=== PATIENT | female | born 2000 | race Caucasian/White ===

== ENCOUNTER 2024-02-09 18:22 | Emergency (ER) | payer MEDICAID ==
[~2024-02-09] VITALS: Ht 170.2 cm; Wt 127.0 kg
[2024-02-09 18:25] VITALS: TEMP 98.5; O2SAT 95
[2024-02-09] MEDS: DIPHENHYDRAMINE 50MG/ML VIAL IM ONE (19:38)
[2024-02-09] MEDS: KETOROLAC 30MG/ML VIAL IM ONE (19:39)
[2024-02-09] MEDS: PROCHLORPERAZINE 10MG/2ML VIAL IM ONE (19:42)
[2024-02-09] MEDS ORDERED: PROC-27 MT (19:55)
[2024-02-09] MEDS ORDERED: IBUP-2030 MT (19:55)
[2024-02-09 20:29] VITALS: BP 154/85; PULSE 74; RESP 20
== END 2024-02-09 20:30 | disposition home or self-care (01) ==
LOC: ER 18:22
DX: R51.9 Headache, unspecified (principal)
CPT/HCPCS: 99284; 81025; 96372; J1200; J1885; J0780

== ENCOUNTER 2024-03-08 20:13 | Emergency (ER) | payer MEDICAID ==
[~2024-03-08] VITALS: Ht 157.5 cm; Wt 108.0 kg
[~2024-03-08 20:13] MED LIST: IBUP-2030 MT; PROC-27 MT
[2024-03-08 20:20] VITALS: O2SAT 98
[2024-03-08] MEDS ORDERED: SUMA25TA9 MT (21:09)
[2024-03-08] MEDS: PROCHLORPERAZINE 10MG/2ML VIAL IM ONE (21:15)
[2024-03-08] MEDS: DIPHENHYDRAMINE 50MG/ML VIAL IM ONE (21:30)
[2024-03-08] MEDS: KETOROLAC 30MG/ML VIAL IM ONE (21:44)
[2024-03-08 21:54] VITALS: BP 164/88; PULSE 109; RESP 18; TEMP 97.3
== END 2024-03-08 22:01 | disposition home or self-care (01) ==
LOC: ER 20:13
DX: I10 Essential (primary) hypertension (principal); G43.909 Migraine, unspecified, not intractable, without status migrainosus; F32.A Depression, unspecified; Z86.59 Personal history of other mental and behavioral disorders
CPT/HCPCS: 99284; 96372; J1200; J1885; J0780

== ENCOUNTER 2024-05-14 12:28 | Emergency (ER) | payer MEDICAID ==
[~2024-05-14] VITALS: Ht 157.5 cm; Wt 107.5 kg
[~2024-05-14 12:28] MED LIST changes: +SUMA25TA9 MT
[2024-05-14 12:40] VITALS: BP 161/96; PULSE 97; RESP 18; TEMP 97.7; O2SAT 97
== END 2024-05-14 15:52 | disposition left against medical advice (07) ==
LOC: ER 12:28
DX: R11.2 Nausea with vomiting, unspecified (principal); Z53.21 Procedure and treatment not carried out due to patient leaving prior to being seen by health care provider

== ENCOUNTER 2024-07-28 11:25 | Emergency (ER) | payer MEDICAID ==
[~2024-07-28] VITALS: Ht 157.5 cm; Wt 108.0 kg
[2024-07-28 11:31] VITALS: BP 163/69; PULSE 109; RESP 16; TEMP 97.5; O2SAT 90
[2024-07-28] MEDS: ONDANSETRON HCL 4MG TABLET PO ONE (13:27)
[2024-07-28] MEDS: LORAZEPAM 0.5MG TABLET PO ONE (13:27)
[2024-07-29] MEDS ORDERED: IOHEXOL-350 100 ML BOTTLE ONE (14:23)
== END 2024-07-28 15:30 | disposition home or self-care (01) ==
LOC: ER 11:25
DX: F41.0 Panic disorder [episodic paroxysmal anxiety] (principal); F32.A Depression, unspecified
CPT/HCPCS: 99283; Q9967; Q0162

== ENCOUNTER 2024-08-21 20:16 | Emergency (ER) | payer MEDICAID ==
[~2024-08-21] VITALS: Ht 157.5 cm; Wt 100.0 kg
[2024-08-21 20:24] VITALS: O2SAT 98
[2024-08-21 20:37] VITALS: BP 174/87; PULSE 102; RESP 20; TEMP 98.5; O2SAT 100
== END 2024-08-21 23:23 | disposition left against medical advice (07) ==
LOC: ER 20:16
DX: R05.9 Cough, unspecified (principal); R51.9 Headache, unspecified; Z53.21 Procedure and treatment not carried out due to patient leaving prior to being seen by health care provider